=== PATIENT | female | born 1980 | race Caucasian/White ===

== ENCOUNTER 2019-12-19 19:08 | Emergency (ER) | payer OTHER, SELFPAY ==
--- NOTE | ~2019-12-19 | XR_ITS ---
EXAMINATION: XR chest 2V DATE: 12/19/2019 19:33 INDICATION: Cough with chest tightness TECHNIQUE: Frontal and lateral views of the chest are obtained COMPARISON: 04/17/2018 FINDINGS: The lungs are free of acute opacities. There is no pleural effusion or pneumothorax. The ca rdiomediastinal silhouette is normal. The visualized bones and soft tissues are unremarkable. IMPRESSION: 1. No acute cardiopulmonary abnormality. Reviewed, dictated and finalized at location A.
--- NOTE | ~2019-12-19 | XR_ITS ---
EXAMINATION: XR sinus <3V INDICATION: Cough and congestion TECHNIQUE: Two views of the paranasal sinuses are obtained. COMPARISON: None available FINDINGS: The paranasal sinuses appear well pneumatized. No definite sinus opacification is identifie d. The facial bones are unremarkable. IMPRESSION: 1. No definite sinus disease although sensitivity of radiographs is low. If there is high clinical roland spicion for sinusitis, further evaluation with CT is recommended. Reviewed, dictated and finalized at location A. IMPRESSION: 1. No definite sinus disease although sensitivity of radiographs is low. If the re is high clinical suspicion for sinusitis, further evaluation with CT is neville mmended.
[2019-12-19 19:23] VITALS: BP 146/72; PULSE 85; RESP 20; TEMP 36.6; O2SAT 98
--- NOTE | 2019-12-19 19:28 | ED.URI ---
HPI - URI/Sore Throat General Chief Complaint: Upper Respiratory Infection Stated Complaint: cough/tight chest Source: family Mode of arrival: ambulatory Limitations: no limitations History of Present Illness HPI Narrative: The patient-- a non-smoker/nondrinker medical researcher w/ history of eosinophilic RAD --presents with cough and shortness of breath. No fever, earache,sore throat,calf pain/edema, precordial chest pain;she took a dose prednisone 5 mg No recent hospital admissions, flu shot immunizations UTD, The patient has been informed that they may have pre-hypertension or Hypertension based on a BP reading in the department. I recommend that the patient call the primary care provider listed on their discharge instructions or a physician of their choice this week to arrange follow up for further evaluation of possible pre-hypertension or Hypertension Related Data Home Medications Medication Instructions Recorded Confirmed albuterol sulfate [ProAir HFA] 1 inh INHALATION QID PRN 12/19/19 12/19/19 benralizumab [Fasenra] 30 mg SUBCUT ONCE 12/19/19 12/19/19 drospirenone-ethinyl estradiol 1 tablet PO DAILY 12/19/19 12/19/19 [Laura] fluticasone furoate-vilanterol 1 inh INHALATION DAILY 12/19/19 12/19/19 [Breo Ellipta] levothyroxine 100 mcg PO DAILY 12/19/19 12/19/19 methylprednisolone 0 mg PO PER PKG DIR 12/19/19 12/19/19 Allergies Allergy/AdvReac Type Severity Reaction Status Date / Time Sulfa (Sulfonamide Allergy Unknown Anaphylactic Verified 12/19/19 19:20 Antibiotics) Shock Review of Systems Review of Systems: Narrative: General/Constitutional: No weight loss,fever Eyes: N0: Redness,discharge Ears/Nose/Throat: No: Epistaxis,ear discharge Respiratory: Denies: Hemoptysis Gastrointestinal: No Vomiting, Bleeding-rectal Skin: No Lumps, eruption Neurologic: No Focal Weakness,Sz Hematologic: Denies: Petechiae/Purpura Psychiatric: No: Suicida ideationl All Other Systems: Reviewed and Negative PMFSH Comments At time of signature, agree with nursing past medical, surgical, social and family history. There is no relevant family history pertinent to the presenting complaint Exam Narrative: Exam Narrative: General Appearance: Well appearing, Well nourished EYE: PERRLA, Conjunctiva clear Ears: Auditory canal normal, TM normal Nose: Rhinorrhea, Mucousal erythema Mouth/Throat: MM moist, Uvula midline, Pharyngeal erythema Neck: Supple, No adenopathy Respiratory: No respiratory distress, Breath sounds equal, Clear to auscultation Cardiovascular: RRR, No JVD Musculoskeletal: Non tender, Normal strength Skin: Warm, Dry Neurological: A&O x3, CN II-XII intact Psychiatric: Normal mood, Normal affect Course Vital Signs Vital signs: Vital Signs Temperature 97.9 F 12/19/19 19:23 Pulse Rate 85 12/19/19 19:23 Respiratory Rate 20 12/19/19 19:23 Blood Pressure 146/72 H 12/19/19 19:23 Pulse Oximetry 98 12/19/19 19:23 Temperature 97.9 F 12/19/19 19:23 Pulse Rate 85 12/19/19 19:23 Respiratory Rate 20 12/19/19 19:23 Blood Pressure 146/72 H 12/19/19 19:23 Pulse Oximetry 98 12/19/19 19:23 MDM - URI/Sore Throat MDM Narrative Medical decision making narrative: Films visualized, interpreted by radiologist, disagree, normal see report Lab Data Labs: Influenza A Screen Negative Reference Range: Negative Influenza B Screen Negative Reference Range: Negative Discharge Plan Discharge Clinical Impression: Asthma exacerbation Patient Disposition: Home, Self-Care Condition: Stable Instructions: Antibiotic Form, Sinusitis (ED) Prescriptions: New cefuroxime axetil 500 mg tablet 500 mg PO Q12H Qty: 20 RF: 0 prednisone 20 mg tablet 80 mg PO DAILY Qty: 20 RF: 0 codeine-guaifenesin 10-100 mg/5 mL liquid 7.5 ml PO Q6H PRN (Reason: cough) Qty: 118 RF: 0 montelukast [Singulair] 10 mg tablet
== END 2019-12-19 20:02 | disposition home or self-care (01) ==
PROVIDERS: Emergency Provider Emergency Medicine; PCP Internal Medicine
DX: J45.901 Unspecified asthma with (acute) exacerbation (principal); E03.9 Hypothyroidism, unspecified
CPT/HCPCS: 70210; 71046; 87804; 99213; G0463

== ENCOUNTER 2020-04-10 07:23 | Outpatient (CLI) | payer OTHER, SELFPAY ==
[2020-04-10 08:24] LABS: Alanine Aminotransferase 25 U/L (4-35); Albumin Level 4.1 g/dL (3.5-5.1); Alkaline Phosphatase 52 U/L (38-126); Aspartate Amino Transferase 26 U/L (14-36); Bilirubin,Total 0.6 mg/dL (0.2-1.3); Blood Urea Nitrogen 15 mg/dL (7-17); Calcium 9.2 mg/dL (8.4-10.2); Carbon Dioxide 28 mmol/L (22-30); Chloride 100 mmol/L (98-107); Cholesterol 207 mg/dL (0-200); Estimated Glomerular Filt Rate > 60; Glucose 104 mg/dL (65-105); HDL Direct 80 mg/dL; Potassium 4.2 mmol/L (3.4-5.0); Sodium 135 mmol/L (137-145); Triglycerides 195 mg/dL (<150)
[2020-04-10 08:35] LABS: LDL Cholesterol Direct 91 mg/dL
[2020-04-10 09:05] LABS: Vitamin D 25 Hydroxy 27.5 ng/mL
== END 2020-04-10 07:24 | disposition home or self-care (01) ==
PROVIDERS: PCP Internal Medicine; Visit Provider Internal Medicine
DX: Z13.1 Encounter for screening for diabetes mellitus (principal); Z13.220 Encounter for screening for lipoid disorders; E03.9 Hypothyroidism, unspecified; E55.9 Vitamin D deficiency, unspecified
CPT/HCPCS: 36415; 80053; 80061; 82306; 84443

== ENCOUNTER 2020-05-06 06:10 | Emergency (ER) | payer OTHER, SELFPAY ==
[2020-05-06 06:18] VITALS: BP 122/80; PULSE 98; RESP 18; TEMP 36.3; O2SAT 100
[2020-05-06 06:46] LABS: Add Urine Microscopic? YES; Appearance Urine Clear (Clear); Bilirubin Urine Negative (Negative); Blood Urine Negative (Negative); Color Urine Yellow (Yellow); Glucose Urine UA Negative (Negative); Ketones Urine Negative (Negative); Leukocyte Esterase Ur Negative LEU/UL (Negative); Mucus Urine Rare /lpf; Nitrate Urine Negative (Negative); Protein Urine Negative (Negative); RBC Urine 0-2 /hpf (0-2); Specific Grav Ur 1.017 (1.001-1.035); Squamous Epithelial Cell Urine Occasional /hpf (Few); Urobilinogen Urine Negative mg/dL (<2.0); WBC Urine 0-3 /hpf
[2020-05-06] MEDS: IBUPROFEN 400 MG TABLET 800 MG PO (06:48)
--- NOTE | 2020-05-06 06:48 | ED.BACK ---
HPI - Back Pain/Injury General Chief Complaint: Back Pain/Injury Stated Complaint: lumbar pain/spasms Time Seen by Provider: 05/06/20 06:48 Source: RN notes reviewed History of Present Illness HPI Narrative: Patient presents emergency department from home for back pain. Patient states she is been having intermittent problems with back spasms in the lower back for the past 6 months. States symptoms worsened last night approximately 9 PM. Pain is located the bilateral lower back. She notes one episode of pain rating in the bilateral legs but denies any other episodes. She states the pain will come and waves of spasms tried icy hot at home with minimal relief. She denies any fevers or chills abdominal pain nausea vomiting dysuria numbness or tingling in the extremities bowel or bladder incontinence or any other symptoms. Patient states she has had a work-up approximately 10 years ago that showed that she had a slipped disc and Schmorl's nodes but denies any evaluation since that time Related Data Home Medications Medication Instructions Recorded Confirmed albuterol sulfate [ProAir HFA] 1 inh INHALATION QID PRN 12/19/19 12/19/19 benralizumab [Fasenra] 30 mg SUBCUT ONCE 12/19/19 12/19/19 drospirenone-ethinyl estradiol 1 tablet PO DAILY 12/19/19 12/19/19 [Laura] fluticasone furoate-vilanterol 1 inh INHALATION DAILY 12/19/19 12/19/19 [Breo Ellipta] levothyroxine 100 mcg PO DAILY 12/19/19 12/19/19 Allergies Allergy/AdvReac Type Severity Reaction Status Date / Time Penicillins Allergy Unknown Hives Verified 05/06/20 06:23 Sulfa (Sulfonamide Allergy Unknown Anaphylactic Verified 05/06/20 06:23 Antibiotics) Shock Review of Systems Review of Systems: Narrative: Gen.: Denies fevers or chills Eyes: Denies eye pain or visual change ENT: Denies congestion Respiratory: Denies shortness of breath or cough CV: Denies chest pain or palpitations GI: Denies abdominal pain nausea, emesis or diarrhea denies bladder incontinence Musculoskeletal: See HPI Neuro: Denies numbness, tingling, weakness or focal weakness Skin: Denies rash Except as documented, all other systems reviewed and negative PMF Past Medical History Medical History (Updated 05/06/20 @ 06:50 by Adrien Santo DO) Schmorl's nodes Social History Social History (Updated 05/06/20 @ 06:49 by Adrien Santo DO) Smoking status: Never smoker Exam Narrative: Exam Narrative: APPEARANCE: No acute distress, nontoxic, resting in bed Eyes: EOMI HEENT: Normocephalic, atraumatic, CV: Regular rate and rhythm without murmur RESPIRATORY: No respiratory distress. Clear to auscultation bilaterally. Abdomen: Soft and nontender, no rebound or guarding MUSCULOSKELETAl: Moves all extremities, no clubbing cyanosis or edema Back: No midline lumbar tenderness to palpation or step-off, tender to palpation over bilateral paravertebral muscles L3-5 , pain increased with forward flexion NEURO: Awake and alert. Following commands, speech normal, no focal deficits, muscle strength 5 out of 5 bilateral lower extremities, bilateral patellar reflex 2+ SKIN:: Warm, dry. Normal Color no rash or lesions Course Course Emergency Course: Discussed with patient results of workup and diagnosis. Discussed need for follow-up with primary care, proper use of medication, and reasons to return to the emergency department. Patient understands and agrees to current treatment plan. Discussed with patient limitations of imaging in the ER has pain is nontraumatic. Discussed need to follow-up with PCP for possible MRI as outpatient as pain is been ongoing for 6 months Vital Signs Vital signs: Vital Signs Temperature 97.4 F L 05/06/20 06:18 Pulse Rate 98 05/06/20 06:18 Respiratory Rate 18 05/06/20 06:18 Blood Pressure 122/80 05/06/20 06:18 Pulse Oximetry 100 05/06/20 06:18 Temperature 97.4 F L 05/06/20 06:18 Pulse Rate 98 05/06/20 06:18 Respiratory Rate 18 08/0
== END 2020-05-06 06:58 | disposition home or self-care (01) ==
PROVIDERS: Emergency Provider Emergency Medicine; PCP Internal Medicine
DX: M54.5 Low back pain (principal)
CPT/HCPCS: 81001; 81025; 99283; A9270

== ENCOUNTER → 2020-05-06 10:50 | Outpatient (CLI) | payer OTHER, SELFPAY ==
--- NOTE | ~2020-05-06 | XR_ITS ---
XR lumbar spine 2-3V DATE: 05/06/2020 11:04 INDICATION: Low back pain TECHNIQUE: AP, lateral, coned lateral lumbosacral views COMPARISON: None FINDINGS: Normal alignment of the lumbar spine. No fracture or bone destruction is evident. The inclu ded lower thoracic and lumbar pedicles are intact. There is mild loss of interspace height at L3-4 and L4-5. There is prominent loss of interspace height as well as degenerative spurring and eburnation at L5-S1 consistent with severe degenerative disc disease at this level. There is degenerative change at the apophyseal joints of the lower lumbar and lumbosacral area. The sacroiliac joints are normal. IMPRESSION: Severe degenerative disc disease at L5-S1 Reviewed, dictated and finalized at location B.
== END ==
PROVIDERS: PCP Internal Medicine; Visit Provider Internal Medicine
DX: M54.5 Low back pain (principal); M51.36 Other intervertebral disc degeneration, lumbar region
CPT/HCPCS: 72100

== ENCOUNTER → 2020-07-25 07:02 | Outpatient (CLI) | payer OTHER, SELFPAY ==
--- NOTE | ~2020-07-25 | MR_ITS ---
EXAMINATION: MR lumbar spine wo con DATE: 07/25/2020 07:40 INDICATION: Lumbar degenerative disc disease. Low back pain. TECHNIQUE: Magnetic resonance imaging (MRI) of the lumbar spine was performed without intravenous con trast. Sequences included sagittal T2-weighted FSE, sagittal T2-weighted FS FSE, sagittal T1-weighted FSE, and axial T2-weighted FSE. COMPARISON: Lumbar spine radiographs 05/06/2020 FINDINGS: Bone alignment is normal. There are Schmorl's nodes at T10-T11 and T11-T12. There is mildly decreased disc height at L3-L4 and L4-L5 and moderately decreased disc height at L5-S1. The distal s moiz cord signal intensity is normal. The conus medullaris is at L1. The following disc levels are s pecifically discussed: L1-L2: The disc does not extend beyond the endplate margin. There is mild bilateral facet joint osteo arthritis. There is no neural foraminal stenosis. There is no central canal stenosis. L2-L3: The disc does not extend beyond the endplate margin. There is mild bilateral facet joint osteo arthritis. There is no neural foraminal stenosis. There is no central canal stenosis. L3-L4: The disc is bulging and has an annular fissure. There is mild bilateral facet joint osteoarthr itis. There is no neural foraminal stenosis. There is mild central canal stenosis. L4-L5: The disc is bulging and has an annular fissure. There is severe right and mild left facet join t osteoarthritis. There is mild bilateral neural foraminal stenosis. There is mild central canal sten osis. L5-S1: The disc is bulging with superimposed left central extrusion. There is mild bilateral facet antonio int osteoarthritis. There is mild bilateral neural foraminal stenosis. There is mild central canal st enosis. IMPRESSION: 1. Moderate lumbar spondylosis. Reviewed, dictated and finalized at location A.
== END ==
PROVIDERS: Visit Provider Internal Medicine
DX: M51.36 Other intervertebral disc degeneration, lumbar region (principal); M47.896 Other spondylosis, lumbar region
CPT/HCPCS: 72148

== ENCOUNTER 2020-07-25 11:13 | Outpatient (CLI) | payer OTHER, SELFPAY ==
[2020-07-25 11:53] LABS: Anion Gap 9 mmol/L (8-16); Blood Urea Nitrogen 16 mg/dL (7-17); Calcium 9.6 mg/dL (8.4-10.2); Carbon Dioxide 25 mmol/L (22-30); Chloride 106 mmol/L (98-107); Estimated Glomerular Filt Rate 56; Glucose 96 mg/dL (65-105); Potassium 4.3 mmol/L (3.4-5.0); Sodium 140 mmol/L (137-145)
== END 2020-07-25 11:14 | disposition home or self-care (01) ==
LOC: ANHLAB 11:16
PROVIDERS: PCP Internal Medicine; Visit Provider Internal Medicine
DX: E88.81 Metabolic syndrome and other insulin resistance (principal)
CPT/HCPCS: 36415; 80048

== ENCOUNTER 2020-08-08 15:10 | Outpatient (CLI) | payer OTHER, SELFPAY ==
[2020-08-08 16:05] LABS: Anion Gap 7 mmol/L (8-16); Blood Urea Nitrogen 18 mg/dL (7-17); Calcium 9.4 mg/dL (8.4-10.2); Carbon Dioxide 27 mmol/L (22-30); Chloride 105 mmol/L (98-107); Estimated Glomerular Filt Rate 46; Glucose 100 mg/dL (65-105); Potassium 4.2 mmol/L (3.4-5.0); Sodium 139 mmol/L (137-145)
== END 2020-08-08 15:11 | disposition home or self-care (01) ==
LOC: ANHLAB 15:12
PROVIDERS: PCP Internal Medicine; Visit Provider Internal Medicine
DX: Z79.899 Other long term (current) drug therapy (principal)
CPT/HCPCS: 36415; 80048

== ENCOUNTER 2020-08-22 07:15 | Outpatient (CLI) | payer OTHER, SELFPAY ==
[2020-08-22 08:02] LABS: Anion Gap 5 mmol/L (8-16); Blood Urea Nitrogen 16 mg/dL (7-17); Calcium 9.5 mg/dL (8.4-10.2); Carbon Dioxide 30 mmol/L (22-30); Chloride 104 mmol/L (98-107); Estimated Glomerular Filt Rate > 60; Glucose 104 mg/dL (65-105); Potassium 4.3 mmol/L (3.4-5.0); Sodium 139 mmol/L (137-145)
== END 2020-08-22 07:16 | disposition home or self-care (01) ==
PROVIDERS: PCP Internal Medicine; Visit Provider Internal Medicine
DX: N28.9 Disorder of kidney and ureter, unspecified (principal)
CPT/HCPCS: 36415; 80048

== ENCOUNTER 2020-10-28 13:32 | Emergency (ER) | payer OTHER, SELFPAY ==
--- NOTE | 2020-10-28 13:38 | ED.FEMALEGU ---
HPI - Female Genitourinary General Chief complaint: Urogenital-Female Stated complaint: uti Time Seen by Provider: 10/28/20 13:38 Source: patient and RN notes reviewed Mode of arrival: ambulatory Limitations: no limitations History of Present Illness HPI Narrative: 40 yo female presents to [facility] stating that her urine is dark and there is strands os mucus in it. Has had low back pain for 5 days. HX of DDD but states that the pain is different. States that it is similar to when she had UTIs in the past. Denies chest pain or abdominal pain. No nausea vomiting or diarrhea. Denies fevers. Denies vaginal complaints. Denies Related Data Home Medications Medication Instructions Recorded Confirmed benralizumab [Fasenra] 30 mg SUBCUT ONCE 12/19/19 10/28/20 drospirenone-ethinyl estradiol 1 tablet PO DAILY 12/19/19 10/28/20 [Laura] levothyroxine 100 mcg PO DAILY 12/19/19 10/28/20 fluticasone furoate-vilanterol 1 inh INHALATION DAILY 10/28/20 10/28/20 [Breo Ellipta] Allergies Allergy/AdvReac Type Severity Reaction Status Date / Time Penicillins Allergy Unknown Hives Verified 05/06/20 06:23 Sulfa (Sulfonamide Allergy Unknown Anaphylactic Verified 05/06/20 06:23 Antibiotics) Shock Review of Systems Review of Systems: Narrative: CONSTITUTIONAL: Denies fever, chills, or sweats. EYES: Denies visual changes, redness, or discharge. ENT: Denies rhinorrhea, congestion, sore throat, or otalgia. CARDIOVASCULAR: Denies chest pain, palpitations, or edema. RESPIRATORY: Denies cough or dyspnea. GASTROINTESTINAL: Denies abdominal pain, nausea, vomiting, or diarrhea. GENITOURINARY: Denies dysuria or hematuria. States she has dark urine and there is mucus SKIN: Denies rash or itching. MUSCULOSKELETAL: Denies back pain, joint pain, or myalgia. NEUROLOGIC: Denies headache, numbness, or weakness. PSYCHIATRIC: Denies anxiety or depression. All other systems reviewed are negative, except as documented in HPI. [facility] Past Medical History Medical History [facility] Social History Social History Smoking status: Never smoker Gender identity (if verbalized by the patient): Female Comments At the time of my signature, I reviewed and agree with the nursing past medical, surgical, social, and family history. There is no relevant family history pertinent to the patient complaint. Exam Narrative: Exam Narrative: GENERAL: This is a well-nourished, well-developed patient, in no apparent distress. HEAD: normocephalic, atraumatic. EYES: PERRL. Sclera clear/white. Vision is grossly intact. CARDIOVASCULAR: Regular rate and rhythm without murmurs, gallops, or rubs. RESPIRATORY: Clear to auscultation. Breath sounds equal bilaterally. No wheezes, rales, or rhonchi. GASTROINTESTINAL: Abdomen soft, non-tender, nondistended. SKIN: warm, intact with no suspicious lesions or rash, good texture and turgor. NEURO: awake, alert, and oriented to person, place and time. There were no obvious focal neurologic abnormalities. EXTREMITIES: No clubbing, cyanosis, or edema. No joint tenderness, effusion, or edema noted. BACK: Nontender without deformity or crepitance. No flank tenderness. No CVA tenderness Course Vital Signs Vital signs: Vital Signs Temperature 98.0 F 10/28/20 13:41 Pulse Rate 94 10/28/20 13:41 Respiratory Rate 18 10/28/20 13:41 Blood Pressure 149/94 H 10/28/20 13:41 Pulse Oximetry 96 10/28/20 13:41 Temperature 98.0 F 10/28/20 13:44 Pulse Rate 94 10/28/20 13:44 Respiratory Rate 18 10/28/20 13:44 Blood Pressure 149/94 H 10/28/20 13:44 Pulse Oximetry 96 10/28/20 13:44 Reviewed. Blood pressure mildly elevated. MDM - Female Genitourinary Differential Diagnosis Differential diagnosis: Likely urinary tract infection, bacterial vaginosis and cystitis Lab Data Attestation: I reviewed the
[2020-10-28 13:41] VITALS: BP 149/94; PULSE 94; RESP 18; TEMP 36.7; O2SAT 96
[2020-10-28 13:44] VITALS: BP 149/94; PULSE 94; RESP 18; TEMP 36.7; O2SAT 96
== END 2020-10-28 13:52 | disposition home or self-care (01) ==
PROVIDERS: Emergency Provider Nurse Practitioner; PCP Internal Medicine
DX: N30.01 Acute cystitis with hematuria (principal); E03.9 Hypothyroidism, unspecified; J82.83 Eosinophilic asthma
CPT/HCPCS: 81003; 87086; 99213; G0463

== ENCOUNTER 2021-07-19 10:00 | Emergency (ER) | payer OTHER, SELFPAY ==
--- NOTE | 2021-07-19 10:10 | ED.URI ---
HPI - URI/Sore Throat General Chief Complaint: Upper Respiratory Infection Stated Complaint: cough Time Seen by Provider: 07/19/21 10:10 Source: patient and RN notes reviewed Mode of arrival: ambulatory Limitations: no limitations History of Present Illness HPI Narrative: 41-year-old female presents to the [facility] with complaints of a cough. Patient reports that she has a history of allergies, has been taking her Xyzal daily along with her inhalers. Cough is just not getting better. Patient states that she gets this once a year. Has been put on steroids and rescue inhaler in the past. Denies fevers. States she took a Covid test which was negative. Related Data Home Medications Medication Instructions Recorded Confirmed benralizumab [Fasenra] 30 mg SUBCUT ONCE 12/19/19 07/19/21 drospirenone-ethinyl estradiol 1 tablet PO DAILY 12/19/19 07/19/21 [Laura] levothyroxine 100 mcg PO DAILY 12/19/19 07/19/21 fluticasone furoate-vilanterol 1 inh INHALATION DAILY 10/28/20 07/19/21 [Breo Ellipta] methocarbamol 500 mg PO BID 07/19/21 07/19/21 Allergies Allergy/AdvReac Type Severity Reaction Status Date / Time Penicillins Allergy Unknown Hives Verified 05/06/20 06:23 Sulfa (Sulfonamide Allergy Unknown Anaphylactic Verified 05/06/20 06:23 Antibiotics) Shock Review of Systems Review of Systems: All systems reviewed & are unremarkable except as noted in HPI and below Constitutional: Constitutional: Reports no additional constitutional complaints, Denies chills and Denies fever(s) Eyes: Eyes: Reports no additional eye complaints ENT: Reports system reviewed and no additional complaints, except as documented and Denies sore throat Cardiovascular: Cardiovascular: Reports no additional cardiovascular complaints and Denies chest pain Respiratory: Respiratory: Reports as per HPI, Reports cough, Denies dyspnea and Denies wheezing Gastrointestinal: Gastrointestinal: Reports no additional gastrointestinal complaints, Denies abdominal pain, Denies nausea and Denies vomiting Musculoskeletal: Musculoskeletal: Reports no additional musculoskeletal complaints Integumentary/Breasts: Skin/Breast: Reports system reviewed and no additional complaints, except as docu Neurologic: Reports system reviewed and no additional complaints, except as documented Psychiatric: Psychiatric: Reports no additional psychiatric complaints Allergic/Immunologic: Allergic/Immunologic: Reports no additional allergic/immunologic complaints PMFSH Past Medical History Medical History (Updated 07/19/21 @ 10:23 by Rema Gonzalez) Juan Miguel's disease Schmorl's nodes Surgical History Surgical History (Updated 07/19/21 @ 10:23 by Rema Gonzalez) No significant past surgical history Social History Social History Smoking status: Never smoker Gender identity (if verbalized by the patient): Female Comments At the time of my signature, I reviewed and agree with the nursing past medical, surgical, social, and family history. There is no relevant family history pertinent to the patient complaint. Exam Const: General: healthy appearing, no acute distress and alert Nutritional Appearance: well nourished and obese Orientation/consciousness: patient oriented x3 Limitations: no limitations HENMT: Head: normal to inspection Ears: external ears normal, TM's normal bilaterally and EAC's normal Eyes: Conjunctivae: conjunctivae normal Pupils: Equal, round and reactive pupils present Neck: Neck: normal visual inspection, no lymphadenopathy and no meningeal signs Chest: Chest palpation & inspection: normal inspection of the chest Resp: Effort & Inspection: normal respiratory effort, no retractions and no use of accessory muscles Auscultation: clear to auscultation bilaterally, no crackles, no rales, no rhonchi and no wheezes Other: Strong cough noted without Cardio: Rate: regular rate Rhythm: regul
[2021-07-19 10:14] VITALS: BP 142/83; PULSE 84; RESP 20; TEMP 36.4; O2SAT 98
== END 2021-07-19 10:25 | disposition home or self-care (01) ==
PROVIDERS: Emergency Provider Nurse Practitioner; PCP Internal Medicine
DX: J40 Bronchitis, not specified as acute or chronic (principal); E06.3 Autoimmune thyroiditis
CPT/HCPCS: 99213; G0463

== ENCOUNTER 2021-07-26 07:07 | Outpatient (CLI) | payer OTHER, SELFPAY ==
[2021-07-26 07:42] LABS: Alanine Aminotransferase 33 U/L (4-35); Alkaline Phosphatase 46 U/L (38-126); Anion Gap 7 mmol/L (8-16); Aspartate Amino Transferase 24 U/L (14-36); Bilirubin,Total 0.3 mg/dL (0.2-1.3); Blood Urea Nitrogen 23 mg/dL (7-17); Calcium 9.1 mg/dL (8.4-10.2); Carbon Dioxide 27 mmol/L (22-30); Chloride 104 mmol/L (98-107); Cholesterol 234 mg/dL (0-200); Estimated Glomerular Filt Rate 55; Glucose 95 mg/dL (65-110); HDL Direct 72 mg/dL; Potassium 4.2 mmol/L (3.4-5.0); Sodium 138 mmol/L (137-145); Triglycerides 178 mg/dL (<150)
[2021-07-26 07:53] LABS: LDL Cholesterol Direct 106 mg/dL
[2021-07-26 08:13] LABS: Hemoglobin A1C 5.1 % (<5.7)
== END 2021-07-26 07:08 | disposition home or self-care (01) ==
LOC: ANHLAB 07:09
PROVIDERS: PCP Internal Medicine; Visit Provider Internal Medicine
DX: E88.81 Metabolic syndrome and other insulin resistance (principal); R73.01 Impaired fasting glucose; E06.3 Autoimmune thyroiditis
CPT/HCPCS: 36415; 80053; 80061; 83036; 84443

== ENCOUNTER 2021-08-30 07:46 | Outpatient (CLI) | payer OTHER, SELFPAY ==
[2021-08-30 08:39] LABS: Anion Gap 1 mmol/L (8-16); Blood Urea Nitrogen 15 mg/dL (7-17); Calcium 9.3 mg/dL (8.4-10.2); Carbon Dioxide 29 mmol/L (22-30); Chloride 103 mmol/L (98-107); Estimated Glomerular Filt Rate > 60; Glucose 109 mg/dL (65-110); Potassium 4.1 mmol/L (3.4-5.0); Sodium 133 mmol/L (137-145)
== END 2021-08-30 07:47 | disposition home or self-care (01) ==
LOC: ANHLAB 07:57
PROVIDERS: PCP Internal Medicine; Visit Provider Internal Medicine
DX: N28.9 Disorder of kidney and ureter, unspecified (principal)
CPT/HCPCS: 36415; 80048

== ENCOUNTER 2021-10-25 11:48 | Emergency (ER) | payer OTHER, SELFPAY ==
[2021-10-25 12:00] VITALS: BP 135/78; PULSE 94; RESP 18; TEMP 36.5; O2SAT 96
--- NOTE | 2021-10-25 12:12 | ED.EAR ---
HPI - Ear Problem General Chief complaint: Ear Stated complaint: dizziness,rt ear pain Source: patient Mode of arrival: ambulatory Limitations: no limitations History of Present Illness HPI Narrative: 41-year-old female presented for complaint of dizziness, and nausea and vomiting upon standing, bilateral ear drainage. PCP has given her Zofran and Dramamine which helps he said they were the symptoms for the last 3 days, however she states she did not take the medication today and did have an episode of dizziness. She also endorses right ear feels like a drum and warm. 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 Denies sinus pressure, congestion, sore throat, headache, cough, fever or chills. MD Complaint: ear pain Related Data Home Medications Medication Instructions Recorded Confirmed benralizumab [Fasenra] 30 mg SUBCUT ONCE 12/19/19 10/25/21 drospirenone-ethinyl estradiol 1 tablet PO DAILY 12/19/19 10/25/21 [Laura] levothyroxine 100 mcg PO DAILY 12/19/19 10/25/21 fluticasone furoate-vilanterol 1 inh INHALATION DAILY 10/28/20 10/25/21 [Breo Ellipta] Allergies Allergy/AdvReac Type Severity Reaction Status Date / Time Penicillins Allergy Unknown Hives Verified 10/25/21 12:04 Sulfa (Sulfonamide Allergy Unknown Anaphylactic Verified 10/25/21 12:04 Antibiotics) Shock Review of Systems Review of Systems: CONSTITUTIONAL: Denies malaise, chills, sweats, or fever. EYES: Denies visual changes, redness, or discharge. ENT: Denies rhinorrhea, congestion, sinus pain, and sore throat. Reports right ear pain CARDIOVASCULAR: Denies chest pain, palpitations, or edema. RESPIRATORY: Denies cough. Denies dyspnea. GASTROINTESTINAL: Denies abdominal pain, nausea, vomiting, diarrhea SKIN: Denies rash or itching. MUSCULOSKELETAL: Denies myalgia. NEUROLOGIC: Denies headache. All systems reviewed & are unremarkable except as noted in HPI and below PMFSH Past Medical History Medical History Juan Miguel's disease Schmorl's nodes Surgical History Surgical History No significant past surgical history Social History Social History Smoking status: Never smoker Gender identity (if verbalized by the patient): Female Comments At time of signature, agree with nursing past medical, surgical, social and family history. There is no relevant family history pertinent to the presenting complaint Exam Narrative: GENERAL: Well-appearing, well-nourished, and in no acute distress. HEAD: Normocephalic EYES: PERRLA, conjunctivae clear ENT: Nares clear. Mucous membranes moist. TM pearly vasquez with dull light reflex left; Right with excess cerumen unable to visualize TM, no tragal tenderness. Oropharynx not erythematous without lesions. Tonsils not enlarged and without exudate, no drooling, no hoarseness, no trismus, uvula midline. NECK: Supple. No lymphadenopathy CHEST: Clear to auscultation, breath sounds equal. No wheezing, rhonchi, rales, or stridor. No respiratory distress, speaks in full sentences. HEART: Regular rate and rhythm. No murmur heard. SKIN: Warm, dry, no rash. NEURO: Alert and oriented x3. PSYCH: Normal mood and affect Course Course Emergency Course: Given symptoms and hx OM, will send abx prescription should sx worsen, pt will monitor for ear pain, fever, headache, drainage. Patient is aware of diagnosis, understands and agrees to treatment plan. Anticipatory guidance given. Patient agrees to follow-up as directed and is aware of reasons to seek care at the emergency department. Portions of this record may have been created with voice recognition software Level of Care: Express Care Visit Vital Signs Vital signs: Vital Signs Temperature 97.7 F 10/25/21 12:00 Pul
== END 2021-10-25 12:40 | disposition home or self-care (01) ==
PROVIDERS: Emergency Provider Nurse Practitioner Family; PCP Internal Medicine
DX: R42 Dizziness and giddiness (principal); H92.03 Otalgia, bilateral; E06.3 Autoimmune thyroiditis
CPT/HCPCS: 99213; G0463

== ENCOUNTER 2021-11-25 08:02 | Outpatient (CLI) | payer OTHER, SELFPAY ==
--- NOTE | 2021-11-25 10:58 | WPDPFTINT ---
PFT Procedure Performed PFT Procedure Performed Spirometry with Pre/Post Bronchodilator Plethysmography (Lung Vol) Diffusing Cap (DLCO) Flow Vol Loop PFT Interpretation Lung volumes were measured with the body plethysmography method. The diminished expiratory reserve volume is related to obesity. The remainder of the lung volumes are unremarkable. Spirometry showed diminished expiratory flow rates and a diminished FEV1 to FVC ratio of 68%, consistent with obstructive airway disease. Following administration of a bronchodilator there was no significant increase in expiratory flow rates. Lung diffusion capacity is within the normal range. Impression: [id number] obstructive airway disease with no response to bronchodilators on this testing. Lung diffusion capacity within the normal range.
== END 2021-11-25 08:03 | disposition home or self-care (01) ==
PROVIDERS: PCP Internal Medicine; Visit Provider Allergy & Immunology
DX: J31.0 Chronic rhinitis (principal); R94.2 Abnormal results of pulmonary function studies
CPT/HCPCS: 94060; 94726; 94729

== ENCOUNTER 2022-08-17 00:58 | Day surgery (SDC) | payer OTHER, SELFPAY ==
[2022-08-11 11:37] VITALS: BMI 44.5
--- NOTE | 2022-08-11 11:45 | PC.NURSE ---
Report to the Outpatient Waiting Room, entrance under the green pavilion located off [facility], at time _0800_ on date _[id number]_. Planned Procedure Time: _1000_. Time changes happen often and if your time is changed the preop area will call you the afternoon before. - You and your visitor will be asked to self-screen and do not enter if you have any COVID symptoms. - We encourage only one visitor and NO visitors under age 16 are allowed at this time. Your visitor will receive communication by the phone number that is given day of service. - The patient visitor is requested to social distance or may leave the building when not with patient due to restrictions. - A mask is required within the hospital. Patients may have clear liquids (water, carbonated beverages, clear teas, apple juice) until 3 hours prior to surgery with a maximum of 20 ounces. - No food from midnight until time of surgery Take the following medications with a SIP of water the morning of surgery: ___Trelegy and Levothyroxine. Medications to discontinue per physician None Date to take last dose Please no make-up, nail swedish, hairspray, perfume, deodorant, or body powder the day of surgery. No jewelry (including any body piercings) or valuables the day of surgery, leave them at home. Please take a shower or bath the night before, or the morning of, surgery with an antibacterial soap. Wear comfortable, loose fitting clothing. - Jewelry must be removed prior to entering the operating room. Rings and piercings that are not removed may be cut off. - The hospital will not accept responsibility for valuables. - Please leave all valuables, including medications, at home the day of surgery. If you are going home after surgery, a licensed shuttle van driver must drive you home. - NO public transportation without another adult. - We recommend that an adult stay with you for 24 hours following discharge. - We also recommend that you do not drive, make important decision, drink alcoholic beverages, or take any drugs that were not prescribed by your health care provider for at least 24 hours after your discharge time. Follow any additional instructions given to you from your surgeon. If you or anyone in your household have experienced Covid symptoms in the past week, please notify your surgeon or the nurse liaison at the phone number below for possible testing. Telephone instructions given to __Patient___and asked if any additional questions and then verbalized understanding. Patient advised to call surgeon office or pre surgery nurse liaison [phone] if any additional questions.
--- NOTE | 2022-08-16 10:38 | PM.IMHP ---
H&P: HPI History of Present Illness Date/Time: 08/16/22 10:38 Chief Complaint: AUB Narrative: Angelina is a 42yo P1001, who presents for scheduled surgery for AUB. Pap normal 11/2021. She is on BC pills for many years. For the last 3-5 months, she has been having heavy bleeding with clots and cramping mid pill pack. Then when she's on her placebo week, she has 1-3 days of spotting. She is passing clots and feels like she even passed some tissue. She denies symptoms of anemia. She has thyroid issues and is on levothyroxine; reports normal thyroid blood studies about 4 months ago. [employer] without any major abnormalities. 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 Surgical History Surgical History No significant past surgical history Family History Family History Grandparent Carcinoma of colon Endometriosis Mother Endometriosis Sibling Endometriosis Social History Social History Smoking status: Never smoker Alcohol intake: current Drinks per week: 1 Substance use: never Substance use type: does not use Living arrangements: with family Gender identity (if verbalized by the patient): Female Sexual Orientation (if Verbalized by the Patient): Straight or Heterosexual Spiritual care concerns: No Meds Home Medications and Allergies Home Medications Medication Instructions Recorded Confirmed Type levothyroxine 100 mcg tablet 100 mcg PO DAILY 12/19/19 08/11/22 History albuterol sulfate 90 mcg/actuation 2 puff inhalation QID PRN 07/19/21 08/11/22 Rx aerosol inhaler shortness of breath or wheezing #6.7 grams estradiol 0.01% (0.1 mg/gram) 1 g vaginal DAILY PRN vaginal 11/20/21 08/11/22 Rx vaginal cream irritation #42.5 grams fluticasone fur. 200 mcg-umeclid 1 inh inhalation DAILY 08/11/22 08/11/22 History 62.5 mcg-vilant 25 mcg inhalat.powder (Trelegy Ellipta) meloxicam 15 mg tablet 15 mg PO DAILY 08/11/22 08/11/22 History methocarbamol 500 mg tablet 500 mg PO TID PRN Pain 08/11/22 08/11/22 History norethindrone acetate 1.5 1 tablet PO DAILY 08/11/22 08/11/22 History mg-ethinyl estradiol 30 mcg tablet (June) Allergies Allergy/AdvReac Type Severity Reaction Status Date / Time Penicillins Allergy Unknown Hives Verified 08/11/22 11:33 Sulfa (Sulfonamide Allergy Unknown Anaphylactic Verified 08/11/22 11:33 Antibiotics) Shock Exam Const: General: cooperative, comfortable, no acute distress and obese Resp: Effort & Inspection: normal respiratory effort Cardio: Rate: regular rate GI: Inspection: normal to inspection GI Palp: No abdominal tenderness and Yes Soft to palpation : Other: deferred to OR Skin: General skin exam: normal color Neuro: General: patient oriented x3 Psych: Appearance: grossly normal Affect: normal affect Attitude: cooperative Assessment and Plan Assessment and plan (1) Abnormal uterine bleeding: Code(s): N93.9 - Abnormal uterine and vaginal bleeding, unspecified Status: Acute Plan - Proceed with hysteroscopy with dilation and curettage due to AUB while on OCPs - risks/benefits explained in detail
[2022-08-17] VITALS (7 sets, daily range): BP systolic 122–146; BP diastolic 72–83; PULSE 70–92; RESP 12–20; TEMP 36–36.4; O2SAT 98–100
--- NOTE | 2022-08-17 07:00 | WPDHPUPDATE1 ---
History and Physical Update Update Date/Time: 08/17/22 07:00 History and Physical has been reviewed, including an updated exam of the patient. There are NO changes in the patient's condition. Risks, benefits, and alternatives have been discussed and questions answered. Patient agrees to proceed with procedure.
[2022-08-17] MEDS: LACTATED RINGERS 1,000 ML 30 ML IV CONT (08:30)
[2022-08-17] MEDS: ACETAMINOPHEN 500 MG TABLET 1000 MG PO (08:35)
--- NOTE | 2022-08-17 10:23 | WPDANESEPPF ---
Anes - Initial Pre Proc Eval Procedure: Operation Date: 08/17/22 10:00 Proposed Procedures p Hysteroscopy with Dilation and Curettage - Erica Landers MD Date/Time: 08/17/22 10:23 Surgeon: Erica Landers MD Pre Op Diagnosis: Abnormal Uterine bleeding Patient Data Age: 42 Gender: F Height: 1.93 m Weight: 165.3 kg Last Vital Signs Temp 36.0 C L 08/17/22 08:03 Pulse 84 08/17/22 08:03 Resp 18 08/17/22 08:03 BP 139/81 08/17/22 08:03 Pulse Ox 99 08/17/22 08:03 O2 Del Method Room Air 08/17/22 08:03 Allergies Allergy/AdvReac Type Severity Reaction Status Date / Time Penicillins Allergy Unknown Hives Verified 08/17/22 08:11 Sulfa (Sulfonamide Allergy Unknown Anaphylactic Verified 08/17/22 08:11 Antibiotics) Shock Home Medications Medication Instructions Recorded Confirmed Type levothyroxine 100 mcg tablet 100 mcg PO DAILY 12/19/19 08/17/22 History albuterol sulfate 90 mcg/actuation 2 puff inhalation QID PRN 07/19/21 08/17/22 Rx aerosol inhaler shortness of breath or wheezing #6.7 grams estradiol 0.01% (0.1 mg/gram) 1 g vaginal DAILY PRN vaginal 11/20/21 08/17/22 Rx vaginal cream irritation #42.5 grams fluticasone fur. 200 mcg-umeclid 1 inh inhalation DAILY 08/11/22 08/17/22 History 62.5 mcg-vilant 25 mcg inhalat.powder (Trelegy Ellipta) meloxicam 15 mg tablet 15 mg PO DAILY 08/11/22 08/17/22 History methocarbamol 500 mg tablet 500 mg PO TID PRN Pain 08/11/22 08/17/22 History norethindrone acetate 1.5 1 tablet PO DAILY 08/11/22 08/17/22 History mg-ethinyl estradiol 30 mcg tablet (Junel) Patient hx anesthesia problems: none Family hx anesthesia problems: none Results Review: All pre-operative results and documents have been reviewed as part of the pre-operative evaluation. [facility] Past Medical History Medical History (Updated 08/17/22 @ 10:24 by Charanjit Parham DO) Asthma GERD (gastroesophageal reflux disease) Juan Miguel's disease Hypothyroidism Intervertebral disc degeneration Schmorl's nodes Surgical History Surgical History No significant past surgical history Family History Family History Grandparent Carcinoma of colon Endometriosis Mother Endometriosis Sibling Endometriosis Social History Social History Smoking status: Never smoker Alcohol intake: current Drinks per week: 1 Substance use: never Substance use type: does not use Living arrangements: with family Gender identity (if verbalized by the patient): Female Sexual Orientation (if Verbalized by the Patient): Straight or Heterosexual Spiritual care concerns: No Anes - Eval Final PreProcedure Day of Procedure 08/17/22 10:23 Patient weight: morbidly obese Heart: regular rate and rhythm Lungs: clear to auscultation Airway: Mallampati scale class II Neurological: alert and oriented Last oral intake: >/= 8 hours ASA classification: III Emergent: no Anesthetic plan: proceed Anesthesia type and monitoring: general GIVS and LMA and standard monitoring Results Review: All pre-operative results and documents have been reviewed as part of the pre-operative evaluation. Informed Consent: The patient's anesthetic plan and its attendant risks and benefits were discussed with the patient/family/POA. Questions were solicited and answers provided to the satisfaction of the patient/family/POA.
[2022-08-17] MEDS: KETOROLAC 30 MG/ML VIAL (*BKC) IV PUSH (10:27)
--- NOTE | 2022-08-17 11:55 | P.OP_ITS ---
Procedure Note - Detailed Date of Procedure 08/17/22 Pre-op Diagnosis Abnormal Uterine bleeding Post-op Diagnosis Same Procedure Performed Hysteroscopy with dilation and curettage Surgeon Erica Landers MD Anesthesia General Findings Cervix with large ectropion that easily bled; enlarged uterus; normal cavity with bilateral tubal ostia visualized, thickened polypoid lining noted to be arising from the posterior uterine wall. Good hemostasis at end of case. Fluid deficit of 50cc. Description of Procedure Angelina was taken to the operating room where she was placed under general anesthesia without complications. She was then prepped and draped in the usual sterile fashion in the dorsal lithotomy position with her legs in low Edgard stirrups. A time-out was performed and no perioperative antibiotics were indicated. A bivalve speculum was placed within the vagina where the cervix was easily identified. The anterior lip of the cervix was grasped with a single- tooth tenaculum. The cervix was then serially dilated to allow for the hysteroscope. The hysteroscope was advanced into the uterine cavity with the above findings noted. A curettage was then performed until a good uterine cry was felt throughout the uterus. The curettings were sent to pathology. Good hemostasis was noted. All instruments were removed from the vagina. Sponge, lap, instrument, and needle counts were correct at the end of the procedure. Patient was awoken from anesthesia and taken to recovery with plans of same-day discharge home. Estimated Blood Loss 5 Pathology Yes (endometrial curettings) Complications No immediate complications Condition Stable Disposition Same day [facility] Billing Surgery - Charge Forward: Surgery Billing
== END 2022-08-17 13:33 | disposition home or self-care (01) ==
PROVIDERS: PCP Internal Medicine; Visit Provider Obstetrics & Gynecology
PROC: 0U5B8ZZ Destruction of Endometrium, Via Natural or Artificial Opening Endoscopic (ICD-10-PCS; CPT 58563; principal; 2022-08-17 10:00)
DX: N93.9 Abnormal uterine and vaginal bleeding, unspecified (principal); N86 Erosion and ectropion of cervix uteri; J45.909 Unspecified asthma, uncomplicated; E06.3 Autoimmune thyroiditis; K21.9 Gastro-esophageal reflux disease without esophagitis; E66.01 Morbid (severe) obesity due to excess calories; Z68.41 Body mass index [BMI] 40.0-44.9, adult; Z79.51 Long term (current) use of inhaled steroids
CPT/HCPCS: 58558; 88305; A9270; J1885; J2250; J2405; J2704; J3010; J7120

== ENCOUNTER 2023-05-18 06:58 | Outpatient (CLI) | payer OTHER, SELFPAY ==
[2023-05-18 08:12] LABS: Alanine Aminotransferase 44 U/L (6-35); Albumin Level 3.9 g/dL (3.5-5.1); Alkaline Phosphatase 54 U/L (38-126); Anion Gap 4 mmol/L (8-16); Aspartate Amino Transferase 28 U/L (14-36); Bilirubin,Total 0.6 mg/dL (0.2-1.3); Blood Urea Nitrogen 15 mg/dL (7-17); Calcium 8.8 mg/dL (8.4-10.2); Carbon Dioxide 28 mmol/L (22-30); Chloride 105 mmol/L (98-107); Cholesterol 192 mg/dL (0-200); Estimated Glomerular Filt Rate > 60; Glucose 92 mg/dL (65-110); HDL Direct 56 mg/dL; Potassium 3.9 mmol/L (3.4-5.0); Sodium 137 mmol/L (137-145); Triglycerides 108 mg/dL (<150)
[2023-05-18 08:23] LABS: LDL Cholesterol Direct 105 mg/dL
== END 2023-05-18 06:59 | disposition home or self-care (01) ==
LOC: ANHLAB 06:59
PROVIDERS: PCP Internal Medicine; Visit Provider Internal Medicine
DX: Z00.00 Encounter for general adult medical examination without abnormal findings (principal); Z13.220 Encounter for screening for lipoid disorders; E06.3 Autoimmune thyroiditis; E55.9 Vitamin D deficiency, unspecified; Z13.1 Encounter for screening for diabetes mellitus
CPT/HCPCS: 36415; 80053; 80061; 82306; 84443

== ENCOUNTER 2024-02-12 07:19 | Outpatient (CLI) | payer OTHER, SELFPAY ==
[2024-02-12 07:58] LABS: Basophils Percent Auto 0.4 % (0.2-1.2); Hematocrit 42.5 % (37.0-47.0); Hemoglobin 13.9 g/dL (12.0-15.0); Immature Granulocyte Absolute 0.03 K/mm3 (0.00-0.031); Immature Granulocyte Percent A 0.4 % (0-0.5); Lymphocytes Absolute Auto 2.09 K/mm3 (0.9-3.2); Lymphocytes Percent Auto 27.3 % (18.3-44.2); Mean Corpuscular HGB Conc 32.7 g/dl (32-36); Mean Corpuscular Hemoglobin 30.8 pg (26-34); Mean Platelet Volume 9.8 fl (7.4-10.4); Monocytes Absolute Auto 0.9 K/mm3 (0.1-0.6); Monocytes Percent Auto 11.9 % (2.6-8.5); Neutrophils Absolute Auto 4.6 K/mm3 (1.3-6.7); Platelet Count Result 279 k/mm3 (150-375); Red Blood Count 4.52 M/mm3 (4.2-5.4); Red Cell Distribution Width 12.8 % (11.5-14.5); White Blood Count 7.7 K/mm3 (4.5-10.0)
[2024-02-12 08:10] LABS: Alanine Aminotransferase 52 U/L (6-35); Albumin Level 4.2 g/dL (3.5-5.1); Alkaline Phosphatase 62 U/L (38-126); Amylase 60 U/L (30-110); Anion Gap 2 mmol/L (4-12); Aspartate Amino Transferase 33 U/L (14-36); Bilirubin,Total 0.7 mg/dL (0.2-1.3); Blood Urea Nitrogen 15 mg/dL (7-17); Calcium 9.5 mg/dL (8.4-10.2); Carbon Dioxide 27 mmol/L (22-30); Chloride 107 mmol/L (98-107); Estimated Glomerular Filt Rate > 60; Glucose 100 mg/dL (65-110); Lipase 71 U/L (23-300); Potassium 4.1 mmol/L (3.4-5.0); Sodium 136 mmol/L (137-145)
== END 2024-02-12 07:20 | disposition home or self-care (01) ==
LOC: ANHLAB 07:23
PROVIDERS: PCP Internal Medicine; Visit Provider Internal Medicine
DX: R10.9 Unspecified abdominal pain (principal)
CPT/HCPCS: 36415; 80053; 82150; 83690; 85025

== ENCOUNTER 2024-02-18 09:39 | Outpatient (CLI) | payer OTHER, SELFPAY ==
--- NOTE | ~2024-02-18 | US_ITS ---
Limited Abdominal Sonogram: Real-time sonographic imaging of the right upper quadrant was performed. Clinical History: Right upper quadrant pain Findings: The liver appears echogenic, with no evidence of mass lesion or bile duct dilatation. Main portal vein demonstrates normal direction of flow. The gallbladder is well distended, and appears no rmal with no evidence of gallstone or wall thickening. The common bile duct measures 5 mm. The visua lized pancreas, aorta, and IVC are unremarkable. Impression: Diffuse fatty infiltration of liver. Reviewed, dictated and finalized at location M. Impression: Diffuse fatty infiltration of liver.
== END 2024-02-18 09:40 ==
LOC: MICIMG 09:40
PROVIDERS: PCP Internal Medicine; Visit Provider Internal Medicine
DX: K76.0 Fatty (change of) liver, not elsewhere classified (principal)
CPT/HCPCS: 76705

== ENCOUNTER 2024-02-19 06:55 | Outpatient (CLI) | payer OTHER, SELFPAY ==
[2024-02-19 08:30] LABS: Alanine Aminotransferase 43 U/L (6-35); Albumin Level 4.1 g/dL (3.5-5.1); Alkaline Phosphatase 57 U/L (38-126); Aspartate Amino Transferase 35 U/L (14-36); Bilirubin,Total 0.7 mg/dL (0.2-1.3)
[2024-02-19 09:12] LABS: Hepatitis B Surface Antigen Negative (Negative)
[2024-02-19 09:18] LABS: HAV RESULT Negative (Negative); Hepatitis B Core IgM Result Negative (Negative)
[2024-02-19 09:32] LABS: Hepatitis B Surface Anti Res Positive; Hepatitis C Virus Antibody Negative (Negative)
[2024-02-19 09:33] LABS: Iron 89 ug/dL (37-170)
[2024-02-19 09:42] LABS: Percent Iron Saturation 31 % (20-50)
[2024-02-22 02:19] LABS: Hepatitis A Antibody Total NON-REACTIVE (NON-REACTIVE)
== END 2024-02-19 06:56 | disposition home or self-care (01) ==
LOC: ANHLAB 06:58
PROVIDERS: PCP Internal Medicine; Visit Provider Internal Medicine
DX: R74.8 Abnormal levels of other serum enzymes (principal)
CPT/HCPCS: 36415; 80076; 83540; 83550; 86705; 86706; 86708; 86709; 86803; 87340